=== PATIENT | male | born 1965 | race Caucasian/White ===

== ENCOUNTER 2016-09-21 16:08 | Emergency (ER) | payer OTHER ==
[~2016-09-21] VITALS: Ht 175.3 cm; Wt 149.7 kg
[2016-09-21] MEDS ORDERED: LISI2.5T3 PO (16:21)
[2016-09-21] MEDS ORDERED: FLOM5CAP PO (16:36)
[2016-09-21] MEDS ORDERED: HYDR-3719 PO (16:36)
[2016-09-21] MEDS ORDERED: ASPI325T PO (16:36)
[2016-09-21] MEDS ORDERED: METO37.5 PO (16:36)
[2016-09-21] MEDS ORDERED: PROT1TAB2 PO (16:36)
[2016-09-21] MEDS ORDERED: ASPIRIN 81 MG CHEW TABLET PO ONE (17:00)
[2016-09-21] MEDS ORDERED: OMEG1CHW2 PO (17:01)
[2016-09-21] MEDS ORDERED: VITA50003 PO (17:01)
[2016-09-21] MEDS ORDERED: VITA1CHW5 PO (17:01)
[2016-09-21] MEDS ORDERED: APPL188C PO (17:01)
[2016-09-21] MEDS ORDERED: [UNRECOGNIZED DRUG - CODE] PO (17:01)
[2016-09-21 17:04] LABS: BASO % 0.3 % (0.0-1.0); EOS # 0.2 K/mm3 (0.0-0.50); LARGE UNSTAINED CELL # 0.1 K/mm3 (0.0-0.4); LARGE UNSTAINED CELL % 0.8 % (0.0-4.0); LYMPH # 1.6 K/mm3 (1.5-4.5); LYMPH % 15.6 % (24.0-44.0); MEAN CORPUSCULAR HEMOGLOBIN 29.7 pg (27.0-33.0); MEAN CORPUSCULAR HGB CONC 33.7 g/dl (32.0-36.5); MEAN CORPUSCULAR VOLUME 88.2 fl (80.0-96.0); MONO # 0.4 K/mm3 (0.0-0.8); MONO % 3.8 % (0.0-5.0); NEUTROPHILS # 8.2 K/mm3 (1.8-7.7); NEUTROPHILS % 77.4 % (36.0-66.0); PLATELET COUNT, AUTOMATED 247 k/mm3 (150-450); RED CELL DISTRIBUTION WIDTH 14.3 % (11.5-14.5); WHITE BLOOD COUNT 10.5 K/mm3 (4.0-10.0)
--- NOTE | 2016-09-21 17:38 | REP ---
PA and lateral chest: Comparisons 06/01/2020 16. The lung etienne are clear. The cardiac size is normal The etta, mediastinum, and bony thorax are unremarkable. Impression: Negative PA and lateral chest. There is no interval change. Signed by Mg Recinos MD 09/21/2016 05:29 P
--- NOTE | 2016-09-21 19:14 | ECGEPIP ---
Stationary ECG Study [facility] - ED Test Date: 2016-09-21 Pat Name: NOREEN LEW Department: Room: - Gender: M Surgical Supervisor: carol : 1965 Requested By: Billie Coello Order Number: [id number] Reading MD: Oneil Oh Measurements Intervals [place] Rate: 83 P: 39 CA: 146 QRS: -10 QRSD: 105 T: 18 QT: 343 QTc: 405 Interpretive Statements SINUS RHYTHM NSTTW ABNORMALITIES SIMILAR TO 06/01/16 Electronically Signed On 09-21-2016 19:14:33 EDT by Oneil Oh
[2016-09-21 19:25] LABS: ALBUMIN 3.2 GM/DL (3.2-5.2); ALBUMIN/GLOBULIN RATIO 0.76 (1.00-1.93); ALKALINE PHOSPHATASE 110 U/L (45-117); ALT/SGPT 26 U/L (12-78); ANION GAP 6 MEQ/L (8-16); AST/SGOT 11 U/L (15-37); BILIRUBIN,DIRECT < 0.1 MG/DL (0.0-0.2); BILIRUBIN,TOTAL 0.3 MG/DL (0.2-1.0); BLOOD UREA NITROGEN 18 MG/DL (7-18); CARBON DIOXIDE LEVEL 28 MEQ/L (21-32); CHLORIDE LEVEL 104 MEQ/L (98-107); GLOMERULAR FILTRATION RATE > 60.0 (>56); GLUCOSE, FASTING 122 MG/DL (70-105); SODIUM LEVEL 138 MEQ/L (136-145); TOTAL PROTEIN 7.4 GM/DL (6.4-8.2)
[2016-09-21 19:45] VITALS: BP 116/57
== END 2016-09-21 19:53 | disposition left against medical advice (07) ==
LOC: M ED 18:01
DX: R07.9 Chest pain, unspecified (principal); R06.02 Shortness of breath; R94.31 Abnormal electrocardiogram [ECG] [EKG]; I51.9 Heart disease, unspecified; E78.5 Hyperlipidemia, unspecified; Z95.5 Presence of coronary angioplasty implant and graft; F17.200 Nicotine dependence, unspecified, uncomplicated; Z79.899 Other long term (current) drug therapy; Z79.82 Long term (current) use of aspirin

== ENCOUNTER 2017-01-14 21:06 | Emergency (ER) | payer OTHER ==
[~2017-01-14] VITALS: Ht 177.8 cm; Wt 150.0 kg
[2017-01-14 21:06] VITALS: BP 129/76
[~2017-01-14 21:06] MED LIST: APPL188C PO; ASPI325T PO; FLOM5CAP PO; HYDR-3719 PO; LISI2.5T3 PO; METO37.5 PO; OMEG1CHW2 PO; PROT1TAB2 PO; VITA1CAP40 PO; VITA1CHW5 PO; [UNRECOGNIZED DRUG - CODE] PO
[2017-01-14] MEDS ORDERED: SIMV80TA PO (21:22)
[2017-01-14] MEDS ORDERED: FLUORESCEIN OPHTH 1 MG STRIP OS ONE (21:45)
[2017-01-14] MEDS ORDERED: TETRACAINE 0.5% OPHTH SOLN 4ML OS ONE (21:45)
[2017-01-14] MEDS ORDERED: CIPROFLOXACIN 0.3% OPHTH SOLN 2.5ML OS ONE (22:00)
== END 2017-01-14 22:06 | disposition home or self-care (01) ==
LOC: M ED 21:06
DX: S05.02XA Injury of conjunctiva and corneal abrasion without foreign body, left eye, initial encounter (principal); W26.8XXA Contact with other sharp object(s), not elsewhere classified, initial encounter; Y92.9 Unspecified place or not applicable; Y93.89 Activity, other specified; Y99.0 Civilian activity done for income or pay; I51.9 Heart disease, unspecified; I50.9 Heart failure, unspecified; I25.2 Old myocardial infarction; I25.10 Atherosclerotic heart disease of native coronary artery without angina pectoris; I10 Essential (primary) hypertension; K21.9 Gastro-esophageal reflux disease without esophagitis; E66.9 Obesity, unspecified; F17.200 Nicotine dependence, unspecified, uncomplicated; Z79.899 Other long term (current) drug therapy; Z79.82 Long term (current) use of aspirin

== ENCOUNTER 2017-08-16 16:09 | Emergency (ER) | payer OTHER ==
[2017-08-16 17:36] LABS: BASO # 0.1 10^3/uL (0.0-0.2); BASO % 0.5 % (0.0-1.0); EOS # 0.1 10^3/uL (0.0-0.50); EOS % 1.2 % (0.0-3.0); HEMATOCRIT 41.9 % (42.0-52.0); HEMOGLOBIN 13.8 g/dl (14.0-18.0); IMMATURE GRANULOCYTE % 0.7 % (0-3.0); LYMPH # 2.3 10^3/uL (1.5-4.5); LYMPH % 21.6 % (24.0-44.0); MEAN CORPUSCULAR HEMOGLOBIN 28.5 pg (27.0-33.0); MEAN CORPUSCULAR HGB CONC 32.9 g/dl (32.0-36.5); MEAN CORPUSCULAR VOLUME 86.6 fl (80.0-96.0); MONO # 0.9 10^3/uL (0.0-0.8); MONO % 8.3 % (0.0-5.0); NEUTROPHILS # 7.3 10^3/uL (1.8-7.7); NEUTROPHILS % 67.7 % (36.0-66.0); PLATELET COUNT, AUTOMATED 313 10^3/uL (150-450); RED BLOOD COUNT 4.84 10^6/uL (4.30-6.10); RED CELL DISTRIBUTION WIDTH 14.4 % (11.5-14.5); WHITE BLOOD COUNT 10.7 10^3/uL (4.0-10.0)
[2017-08-16 18:04] LABS: ANION GAP 7 MEQ/L (8-16); BLOOD UREA NITROGEN 20 MG/DL (7-18); CARBON DIOXIDE LEVEL 27 MEQ/L (21-32); CHLORIDE LEVEL 105 MEQ/L (98-107); CPK CREATINE PHOSPHOKINASE 256 U/L (39-308); CREATININE FOR GFR 1.22 MG/DL (0.70-1.30); GLOMERULAR FILTRATION RATE > 60.0 (>56); GLUCOSE, FASTING 92 MG/DL (70-100); POTASSIUM SERUM 4.2 MEQ/L (3.5-5.1); SODIUM LEVEL 139 MEQ/L (136-145); TROPONIN I < 0.02 NG/ML (< 0.10)
[2017-08-16 18:05] LABS: CK-MB VALUE MASS 2.6 NG/ML (0.0-3.6); MB/CK RELATIVE INDEX 1.01 (< OR =4)
== END 2017-08-16 18:38 | disposition home or self-care (01) ==
LOC: M ED 16:09
DX: R07.9 Chest pain, unspecified (principal); I25.2 Old myocardial infarction; E11.9 Type 2 diabetes mellitus without complications; I10 Essential (primary) hypertension; Z95.5 Presence of coronary angioplasty implant and graft; F17.200 Nicotine dependence, unspecified, uncomplicated; Z79.82 Long term (current) use of aspirin; Z79.899 Other long term (current) drug therapy
CPT/HCPCS: 71045

== ENCOUNTER → 2018-06-05 | Outpatient (REF) ==
[~2018-06-05] MED LIST changes: +FLOM0.4C39 PO; -FLOM5CAP PO; -LISI2.5T3 PO; +LISI2.5T5 PO; +SIMV80TA13 PO; -VITA1CAP40 PO; +VITA50005 PO
--- NOTE | 2018-06-05 15:25 | REP ---
Chest two views HISTORY: Shortness of breath Comparison: 08/16/2017 The lungs are clear. The heart is normal in size. The pulmonary vasculature is normal in appearance. The bony structure is intact. IMPRESSION: No acute disease. Electronically Signed by Hemanth Sosa MD 06/05/2018 03:16 P
== END ==
LOC: M RAD 14:05
PROVIDERS: ATTEND Nurse Practitioner Family
DX: R06.2 Wheezing (principal)

== ENCOUNTER 2019-02-10 11:59 | Emergency (ER) | payer OTHER ==
[~2019-02-10] VITALS: Ht 175.3 cm; Wt 147.7 kg
[~2019-02-10 11:59] MED LIST changes: +ASPI-1 PO; -ASPI325T PO; +LISI-1046 PO; -LISI2.5T5 PO; -VITA1CHW5 PO; +VITA250C3 PO
[2019-02-10 14:29] VITALS: BP 129/71
[2019-02-10] MEDS ORDERED: IBUPROFEN 800 MG TAB PO ONE (14:30)
--- NOTE | 2019-02-10 19:35 | REP ---
LEFT KNEE, FIVE VIEWS: Five views of the left knee are performed. I see no acute fracture or dislocation. There is mild medial joint space narrowing with subchondral sclerosis and spurring. There does appear to be a mild to moderate joint effusion. There is also narrowing and subchondral sclerosis of the lateral patellofemoral joint. IMPRESSION: Mild degenerative changes. Joint effusion noted. No definite acute fracture. Electronically Signed by Mg Saldana MD 02/11/2019 11:45 P
== END 2019-02-10 14:38 | disposition home or self-care (01) ==
LOC: M ED 11:59
DX: M25.462 Effusion, left knee (principal); M79.662 Pain in left lower leg; X50.1XXA Overexertion from prolonged static or awkward postures, initial encounter; Y92.9 Unspecified place or not applicable; Y93.9 Activity, unspecified; Y99.9 Unspecified external cause status; I25.2 Old myocardial infarction; E11.9 Type 2 diabetes mellitus without complications; I10 Essential (primary) hypertension; E78.5 Hyperlipidemia, unspecified; K21.9 Gastro-esophageal reflux disease without esophagitis; N40.0 Benign prostatic hyperplasia without lower urinary tract symptoms; G47.30 Sleep apnea, unspecified; Z95.5 Presence of coronary angioplasty implant and graft; Z72.0 Tobacco use; Z79.82 Long term (current) use of aspirin; Z79.899 Other long term (current) drug therapy

== ENCOUNTER 2019-10-27 13:26 | Emergency (ER) | payer OTHER ==
[~2019-10-27] VITALS: Ht 175.3 cm; Wt 155.3 kg
[~2019-10-27 13:26] MED LIST changes: -LISI-1046 PO; +LISI2.5T2 PO
[2019-10-27] MEDS ORDERED: METF500T13 PO (13:39)
[2019-10-27 13:55] LABS: BASO # 0.1 10^3/uL (0.0-0.2); BASO % 0.5 % (0.0-1.0); EOS # 0.1 10^3/uL (0.0-0.5); HEMATOCRIT 42.1 % (42.0-52.0); HEMOGLOBIN 14.3 g/dl (13.5-17.5); LYMPH % 16.5 % (24.0-44.0); MEAN CORPUSCULAR HEMOGLOBIN 30.2 pg (27.0-33.0); MONO # 0.6 10^3/uL (0.0-0.8); MONO % 5.4 % (0.0-5.0); PLATELET COUNT, AUTOMATED 235 10^3/uL (150-450); RED BLOOD COUNT 4.73 10^6/uL (4.30-6.10); WHITE BLOOD COUNT 11.9 10^3/uL (4.0-10.0)
[2019-10-27 14:28] LABS: BLOOD UREA NITROGEN 16 MG/DL (7-18); CALCIUM LEVEL 8.6 MG/DL (8.5-10.1); CARBON DIOXIDE LEVEL 27 MEQ/L (21-32); CHLORIDE LEVEL 101 MEQ/L (98-107); CPK CREATINE PHOSPHOKINASE 98 U/L (39-308); CREATININE FOR GFR 1.03 MG/DL (0.70-1.30); GLOMERULAR FILTRATION RATE > 60.0 (>56); GLUCOSE, FASTING 358 MG/DL (70-100); POTASSIUM SERUM 4.2 MEQ/L (3.5-5.1); SODIUM LEVEL 136 MEQ/L (136-145)
--- NOTE | 2019-10-27 14:30 | REP ---
CHEST, SINGLE VIEW: There is no evidence of acute infiltrate. No pleural effusion is seen. The heart is normal in size. The mediastinal silhouette is unremarkable. The visualized osseous structures are intact. IMPRESSION: No acute pulmonary disease. Electronically Signed by Mg Saldana MD 10/27/2019 03:08 P
[2019-10-27 15:16] VITALS: BP 121/74
--- NOTE | 2019-10-27 16:48 | ECGEPIP ---
[facility] - ED Test Date: 2019-10-27 Pat Name: NOREEN LEW Department: Room: - Gender: Male Pediatrics Physician: josephine : 1965 Requested By: PERLA SCHULZ Order Number: [id number] Reading MD: Billie Coello Measurements Intervals [place] Rate: 66 P: 43 SD: 150 QRS: -8 QRSD: 92 T: 22 QT: 368 QTc: 388 Interpretive Statements SINUS RHYTHM NSTTW abnormalities DECREASED RATE 10/27/19 Electronically Signed on 10-27-2019 16:48:24 EDT by Billie Coello
--- NOTE | 2019-10-27 16:48 | ECGEPIP ---
[facility] - ED Test Date: 2019-10-27 Pat Name: NOREEN LEW Department: Room: - Gender: Male Radiation Technician: levi : 1965 Requested By: SEBASTIÁN Walker Order Number: [id number] Reading MD: Billie Coello Measurements Intervals [place] Rate: 72 P: 59 OR: 158 QRS: -15 QRSD: 91 T: 15 QT: 363 QTc: 398 Interpretive Statements SINUS RHYTHM NSTTW abnormalities SIMILAR 08/16/17 Electronically Signed on 10-27-2019 16:47:45 EDT by Billie Coello
== END 2019-10-27 15:36 | disposition home or self-care (01) ==
LOC: M ED 13:26
DX: R07.9 Chest pain, unspecified (principal); R06.02 Shortness of breath; I25.10 Atherosclerotic heart disease of native coronary artery without angina pectoris; K21.9 Gastro-esophageal reflux disease without esophagitis; Z95.5 Presence of coronary angioplasty implant and graft; Z79.899 Other long term (current) drug therapy; Z79.82 Long term (current) use of aspirin; F17.210 Nicotine dependence, cigarettes, uncomplicated

== ENCOUNTER → 2021-11-23 | Outpatient (REF) ==
[~2021-11-23] MED LIST changes: -LISI2.5T2 PO; +LISI2.5T9 PO; +METF500T13 PO
== END ==
LOC: M PLAIMG 14:52
PROVIDERS: ATTEND Internal Medicine
DX: M17.11 Unilateral primary osteoarthritis, right knee (principal); R52 Pain, unspecified

== ENCOUNTER → 2022-03-16 | Outpatient (REF) | payer OTHER ==
[2022-03-16 12:57] LABS: APPEARANCE, URINE MANUAL CLEAR (CLEAR); COLOR, URINE MANUAL YELLOW (YELLOW)
[2022-03-16 12:58] LABS: BILIRUBIN, URINE MANUAL NEGATIVE (NEGATIVE); BLOOD URINE MANUAL NEGATIVE (NEGATIVE); GLUCOSE, URINE (UA) MANUAL 4+(1000 MG/DL) mg/dL (NEGATIVE); KETONE, URINE MANUAL NEGATIVE (NEGATIVE); LEUKOCYTE ESTERASE, URINE MAN NEGATIVE (NEGATIVE); NITRITE, URINE MANUAL NEGATIVE (NEGATIVE); PROTEIN, URINE MANUAL NEGATIVE (NEGATIVE); SPECIFIC GRAVITY,URINE MANUAL 1.015 (1.002-1.035); UROBILINOGEN, URINE MANUAL NORMAL (NORMAL)
== END ==
LOC: M LAB REF 12:15
PROVIDERS: ATTEND Physician Assistant
DX: N39.0 Urinary tract infection, site not specified (principal)

== ENCOUNTER → 2022-08-01 | Outpatient (CLI) | payer OTHER | LOC: M RAD 09:48 | PROVIDERS: ATTEND Nurse Practitioner Family | DX: Z12.2 Encounter for screening for malignant neoplasm of respiratory organs (principal); F17.210 Nicotine dependence, cigarettes, uncomplicated ==

== ENCOUNTER 2023-09-03 07:52 | Day surgery (SDC) | payer OTHER ==
[~2023-09-03] VITALS: Ht 175.3 cm; Wt 132.4 kg
[~2023-09-03 07:52] MED LIST changes: +ATOR80TA59 PO; +FINA5TAB2 PO; +LIDOCAINE 2% 100MG/5ML SDV (FOR ANES.) As Ordered ONE; +METO1TAB87 PO; +SEMA2PEN SQ; +SIMV40TA20 PO; +SYNJ1TAB3 PO; +TERB250T91 PO; +[UNRECOGNIZED DRUG - CODE] PO; +fentaNYL 100 MCG/2 ML INJECTION As Ordered ONE; +glargine insulin SC; +propofoL 500 MG/50 ML VIAL As Ordered ONE; +testosterone booster PO
[2023-09-03] MEDS: NS 1,000 ML IV ONE (08:20)
[2023-09-03 09:42] VITALS: TEMP 98.5
[2023-09-03] MEDS: ALBUTEROL SULFATE 2.5MG/0.5ML INH NEB SOLN NEB ONE (10:05)
[2023-09-03 10:07] VITALS: BP 140/86; O2SAT 99
== END 2023-09-03 10:10 | disposition home or self-care (01) ==
LOC: M OPP 07:52
PROVIDERS: ATTEND Internal Medicine Gastroenterology
DX: Z12.11 Encounter for screening for malignant neoplasm of colon (principal); D12.8 Benign neoplasm of rectum; K64.8 Other hemorrhoids; R12 Heartburn; I25.10 Atherosclerotic heart disease of native coronary artery without angina pectoris; Z95.5 Presence of coronary angioplasty implant and graft; E11.9 Type 2 diabetes mellitus without complications; G47.30 Sleep apnea, unspecified; Z99.89 Dependence on other enabling machines and devices; Z86.74 Personal history of sudden cardiac arrest; F17.200 Nicotine dependence, unspecified, uncomplicated; Z79.02 Long term (current) use of antithrombotics/antiplatelets; Z79.2 Long term (current) use of antibiotics; Z79.82 Long term (current) use of aspirin; Z79.84 Long term (current) use of oral hypoglycemic drugs; Z79.891 Long term (current) use of opiate analgesic; Z79.899 Other long term (current) drug therapy
CPT/HCPCS: 43235; 45385; 88305; J3010

== ENCOUNTER → 2024-06-09 | Outpatient (CLI) | payer OTHER ==
[~2024-06-09] MED LIST changes: +ASCO250T16 PO; -LIDOCAINE 2% 100MG/5ML SDV (FOR ANES.) As Ordered ONE; -VITA250C3 PO; -fentaNYL 100 MCG/2 ML INJECTION As Ordered ONE; -propofoL 500 MG/50 ML VIAL As Ordered ONE
== END ==
LOC: M CARPUL 13:47
PROVIDERS: ATTEND Nurse Practitioner Acute Care
DX: R06.00 Dyspnea, unspecified (principal)

== ENCOUNTER → 2024-12-18 | Outpatient (CLI) | payer OTHER ==
[~2024-12-18] MED LIST changes: -FLOM0.4C39 PO; +TAMS-18 PO
== END ==
LOC: M RAD 16:06
PROVIDERS: ATTEND Nurse Practitioner Family
DX: M25.551 Pain in right hip (principal); M87.051 Idiopathic aseptic necrosis of right femur

== ENCOUNTER → 2024-12-23 | Outpatient (CLI) | payer OTHER | LOC: M SOG 10:15 | PROVIDERS: ATTEND Orthopaedic Surgery | DX: M16.11 Unilateral primary osteoarthritis, right hip (principal) ==

== ENCOUNTER → 2025-03-26 | Outpatient (CLI) | payer OTHER | LOC: M SOG 07:20 | PROVIDERS: ATTEND Orthopaedic Surgery | DX: Z53.9 Procedure and treatment not carried out, unspecified reason (principal); M25.551 Pain in right hip; M87.051 Idiopathic aseptic necrosis of right femur ==

== ENCOUNTER → 2025-04-03 | Outpatient (CLI) | payer OTHER | LOC: M SOG 07:24 | PROVIDERS: ATTEND Orthopaedic Surgery | DX: M25.551 Pain in right hip (principal); M87.051 Idiopathic aseptic necrosis of right femur ==